=== PATIENT | female | born 1980 | race Caucasian/White ===

== ENCOUNTER 2022-02-10 08:36 | Day surgery (SDC) | payer OTHER, SELFPAY ==
[~2022-02-10] VITALS: Ht 152.4 cm; Wt 108.4 kg
[2022-02-10] MEDS ORDERED: MIDAZOLAM HCL 5 MG/ML VIAL (VERSED) IV ONE (11:19)
[2022-02-10] MEDS ORDERED: NS IRRIG SOLN 1000 ML IR ONE (11:19)
[2022-02-10] MEDS ORDERED: ONDANSETRON HCL 4 MG/2 ML VIAL ONE (11:19)
[2022-02-10] MEDS ORDERED: LR 1,000 ML IV.SOLN IV ONE (11:19)
[2022-02-10] MEDS ORDERED: PROPOFOL 200MG/ 20ML VIAL (DIPRIVAN) IV ONE (11:19)
[2022-02-10] MEDS ORDERED: fentaNYL CITRATE 250 MCG/5 ML AMP ONE (11:19)
[2022-02-10] MEDS ORDERED: SEVOFLURANE 15 MIN GAS INH ONE (11:19)
[2022-02-10] MEDS ORDERED: METOCLOPRAMIDE HCL 10 MG/2 ML VIAL IVP PRN (12:15)
[2022-02-10] MEDS ORDERED: ONDANSETRON HCL 4 MG/2 ML VIAL IVP PRN (12:15)
[2022-02-10] MEDS ORDERED: MORPHINE 4 MG INJ. 4 MG/ML VIAL IVP PRN ×3 (12:15)
[2022-02-10 12:35] VITALS: BP_SYST 134
== END 2022-02-10 13:15 | disposition home or self-care (01) ==
LOC: SDS 08:36 → SMU 08:38 → SDS 13:15
PROVIDERS: ATTEND Obstetrics & Gynecology
DX: T83.32XA Displacement of intrauterine contraceptive device, initial encounter (principal); K21.9 Gastro-esophageal reflux disease without esophagitis; E66.9 Obesity, unspecified; Z90.49 Acquired absence of other specified parts of digestive tract; Z98.890 Other specified postprocedural states; Y82.8 Other medical devices associated with adverse incidents; Z20.822 Contact with and (suspected) exposure to COVID-19
CPT/HCPCS: 36415 ×2; 58562; 86886; 86900; 86901; 87426; 88300; J2250; J2405; J2704; J3010; J7120; U0003